=== PATIENT | male | born 1960 | race Caucasian/White ===

== ENCOUNTER 2024-03-18 18:29 | Inpatient (IN) | payer MEDICARE, OTHER, SELFPAY ==
[2024-03-18 10:36] VITALS: BP 117/80
--- NOTE | 2024-03-18 12:39 | ED.GENMED ---
History of Present Illness
General
Chief Complaint: Flank Pain
Source: patient
Exam Limitations: none
Time Seen by Provider: 03/18/24 12:10
Nursing documentation reviewed up to this point in time: agreed with
History of Present Illness
History of Present Illness:
Patient is a 64 year old male with hx DM presenting for evaluation of right flank pain. Patient states that a few days ago he was noticing urinary frequency and hematuria. He then began with right lower abdominal/flank pain that has been
intermittent since. Patient has felt 'chilly 'intermittently over the past few days with mild nausea. He did take some ibuprofen with minimal relief. Patient denies any associated known fevers, chest pain, shortness of breath, and oxygen.
Patient has had bouts of vomiting. Patient does report that he is still noticing urinary frequency although denies any dysuria or repeat episodes of hematuria.
Patient has a history of kidney stones in the past which she does state feels very similar to this.
Review of Systems
Review of Systems
Allergies reviewed?: Yes
All Other Systems: ROS reviewed and negative except as documented in HPI and ROS
Phy Exam
Physical Exam
Physical Exam:
Vitals: Patient's vital signs are stable. Afebrile
General: Patient is well appearing, no acute distress. Nontoxic appearing
Skin: Warm and dry, no rashes or lesions
Head: Normocephalic, atraumatic
Eyes: Sclera nonicteric. EOMs intact. No nystagmus.
Throat: Protecting airway
Neck: Normal ROM, no cervical spine tenderness, no meningismus
Cardiac: Regular rate and rhythm, no murmurs.
Pulm: Normal respiratory effort, no wheezes, rales, rhonchi heard on exam.
Abdomen: Abdomen soft. No abdominal tenderness. No tenderness at McBurnerys point. Mild right CVA tenderness. No rashes or ecchymosis overlying right flank. Well healed horizontal scar just superior to umbilicus from prostate surgery a few years
ago.
Extremities: No evidence of cyanosis or edema. Great distal pulses.
Neuro: AAOx3. CN II-XII intact. No focal neurologic deficits.
Psychiatric: Normal affect.
Course
Orders/Labs/Results
Orders:
Orders
03/18/24 12:40
Complete Blood Count/With Diff Urgent
Comprehensive Metabolic Panel Urgent
Urinalysis Reflex To Culture Urgent
Date Specimen was Collected: 03/18/24
Time Specimen was Collected: 12:14
03/18/24 12:57
0.9% Sodium Chloride 1000 ml [Nss] 1,000 ml IV BOLUS
Ketorolac [Toradol] 15 mg IV NOW STA
Ondansetron Injectable [Zofran] 4 mg IV NOW STA
03/18/24 13:00
CT Abd/pel Without Iv Or Oral Urgent
Comment: history stones
Reason For Exam: R flank pain, hematuria
03/18/24 14:24
Tamsulosin [Flomax] 0.4 mg PO NOW STA
03/18/24 17:34
Admit/Transfer Patient As Directed
Co-Sign Provider:
Level of Care: Inpatient admission
Assign to:: Medical/Surgical
Physician / Group: Inessa Mae - [facility]abists
Diagnosis: JENIFER, obstructive uropathy/stones
Reason for Hospitalization: JENIFER, obstructive uropathy/stones - IVF and pain control
Expected length of stay greater than two midnights?: Yes
ELOS- Estimated Length of Stay in days: 2
I certify the patient meets the requirements for IP care: Yes
Code Status As Directed
Resuscitation Status: Full Code
Abnormal Lab Results
03/18/24
12:40
MPV 11.3 H fL
(7.4-10.4)
Absolute Neuts (auto) 6.6 H 10^3/uL
(1.4-6.5)
Absolute Monos (auto) 0.8 H 10^3/uL
(0.1-0.6)
BUN 31 H mg/dl
(9-20)
Creatinine 1.9 H mg/dL
(0.7-1.3)
Glucose 151 H mg/dl
(70-99)
Urine Glucose 3+ A
(Negative)
03/18/24 12:40
03/18/24 12:40
Vital Signs
Initial and Last Documented VS:
Initial Vital Signs
Temp Pulse Resp BP Pulse Ox
97.9 F 93 18 117/80 97
03/18/24 10:36 03/18/24 10:36 03/18/24 10:36 03/18/24 10:36 03/18/24 10:36
Last Documented Vital Signs
Temp Pulse Resp BP Pulse Ox
97.9 F 73 17 127/86 98
03/18/24 10:36 03/18/24 13:32 03/18/24 13:32 03/18/24 13:32 03/18/24 13:32
MDM/Problems Addressed
Differential Diagnosis Includes:
Not limited to: kidney stone, UTI, pyelonephritis, appendicitis, muscle strain, zoster
MDM/Problems Addressed:
64-year-old male with history of kidney stones presenting with acute onset right flank pain few days ago. Patient reports intermittent episodes of right flank pain associated dysuria, and intermittent nausea. 1 episode of hematuria a few days ago.
Patient denies any fever. No chest pain or shortness of breath. Vital signs are stable, patient is afebrile. Physical exam as above. Patient is well-appearing, nontoxic-appearing. Heart regular rate and rhythm, lungs clear bilaterally.
Abdomen is soft and nontender in all 4 quadrants. No CVA tenderness bilaterally. No evidence of rash or bruising on bilateral flanks or abdomen. Labs were performed with show no evidence of leukocytosis. Creatinine was elevated 1.9. No
comparison value although patient was able to locate his blood work performed about a month ago there was endocrinology which showed a creatinine of 1.0. Urine shows no hematuria or signs of infection. Patient was given fluids, Toradol, Zofran.
CT pending.
CT scan does show evidence of 2 to 3 mm stones in the distal right ureter near the UVJ with an associated 3 mm stone just proximally on right side. Did discuss findings with patient. Patient's pain is well-controlled, although given ureteral
calculi in setting of JENIFER recommended admission to hospital for IV fluid, trending kidney function. Patient would like to be admitted to hospital for further evaluation. Patient will be given a dose of Flomax. Case discussed with urology who will
consult. Patient admitted to hospitalist service.
Chronic conditions affecting care:
N/A
Acute Exacerbation and/or Progression of Chronic Illness:
N/A
*Radiology
Radiology exam reviewed: preliminary read by ED provider and radiology read reviewed
*Pulse Oximetry
Patient hypoxic: no
*EKG
Interpreted by ED Provider?: NA
*Keller Machine Operator Interpretation
Rate: Keller Machine Operator- N/A
*Critical Care Note
Total Time (30-74mins, 75-104mins- exclusive of procedures): Not Applicable
Patient Management
Discussion with other providers: Hospitalist and [facility] (urology- Dr. boss)
Escalation/DeEscalation of care consider admission/obs:
Admit for ureteral calculi in setting of JENIFER and further management
ED Attending Note
-
Portions of this chart may have been created with voice recognition software.� Occasional wrong word or��sound alike� substitutions may have occurred due to the inherent limitations of voice recognition software.
Discharge Plan
Departure
Patient Disposition: Admit
Date of Disposition: 03/18/24
Time of Disposition: 14:17
Presentation/result/management discussed w/ accepting MD/DO: Hospitalist
Discharge Problem:
Right distal ureteral calculus, JENIFER (acute kidney injury)
Interventions
Interventions:
*Risk Screen - Suicide Last Done: 03/18/24 10:38
*General Assessment Last Done: 03/18/24 10:38
*Neglect/Abuse Screening Last Done: 03/18/24 10:38
AY-Khwucn-Nvszncaeda Assessment Last Done: 03/18/24 13:32
ED-Male Genitourinary Assessment Last Done: 03/18/24 13:32
[2024-03-18 12:50] LABS: % Basophils 0.5 % (0-2); % Eosinophils 1.8 % (0-6); % Immature Granulocytes 0.2 % (0-0.5); % Lymphocytes 23.2 % (20.5-51.1); % Monocytes 7.7 % (1.7-9.3); % Neutrophils 66.6 % (42.2-75.2); Absolute Basophils 0.1 10^3/uL (0-0.2); Absolute Eosinophils 0.2 10^3/uL (0-0.7); Absolute Lymphocytes 2.3 10^3/uL (1.2-3.4); Absolute Monocytes 0.8 10^3/uL (0.1-0.6); Absolute Neutrophils 6.6 10^3/uL (1.4-6.5); Hematocrit 41.5 % (39.0-52.0); Hemoglobin 14.2 g/dL (13.0-18.0); Mean Corp Hgb Conc. 34.2 g/dL (33.0-37.0); Mean Corpuscular Hgb 29.3 pg (27.0-31.0); Mean Corpuscular Volume 85.6 fL (80.0-94.0); Mean Platelet Volume 11.3 fL (7.4-10.4); Nucleated Red Blood Cells % 0 % (-); Platelet Count 240 10^3/uL (130-400); Red Blood Cell Count 4.85 10^6/uL (4.70-6.10); Red Cell Dist. Width 13.8 % (11.5-14.5); White Blood Cell Count 9.9 10^3/uL (4.8-10.8)
[2024-03-18 12:55] LABS: Urine Albumin Negative (Neg - Trace); Urine Bilirubin Negative (Negative); Urine Character Clear (Clear); Urine Color Yellow; Urine Glucose 3+ (Negative); Urine Ketone Negative (Negative); Urine Leukocyte Negative (Negative); Urine Nitrite Negative (Negative); Urine Occult Blood Negative (Negative); Urine Specific Gravity 1.015 (<1.030); Urine Urobilinogen Negative (Neg - 1+)
[2024-03-18 13:03] LABS: ALT (SGPT) 17 U/L (0-50); AST (SGOT) 22 U/L (17-59); Albumin 4.5 g/dl (3.5-5.0); Alkaline Phosphatase 84 U/L (38-126); Blood Urea Nitrogen 31 mg/dl (9-20); Calcium 9.7 mg/dl (8.4-10.2); Carbon Dioxide 22 mmol/L (22-30); Chloride 105 mmol/L (98-107); Glucose 151 mg/dl (70-99); Potassium 3.8 mmol/L (3.5-5.1); Sodium 138 mmol/L (135-145); Total Bilirubin 0.8 mg/dl (0.2-1.3); eGFR 38.42
[2024-03-18] MEDS: ZOFRAN 4 MG IV (13:29)
[2024-03-18] MEDS: TORADOL 15 MG IV (13:29)
[2024-03-18] MEDS: NSS 1000 IV ×2 (13:29→20:25)
[2024-03-18 13:32] VITALS: BP 127/86
[2024-03-18] MEDS: FLOMAX 0.400000000000000022 MG PO (14:48)
--- NOTE | 2024-03-18 14:58 | PHANOTE ---
03/18/2024, [employer] rec tech, spoke to pt. to obtain their med. history; pt. gets their Ozempic through a low income program directly from the power tool repairer and their Jardiance through [employer]. Could not confirm with another source.
--- NOTE | 2024-03-18 17:22 | HPS.HSE ---
Family Physician
-
Family Physician: Tony Hay
Chief Complaint
-
flank pain
History of Present Illness
64 y/o M hx of DM, prior kidney stones, presenting to ER with R flank pain. He states symptoms began a few days ago with urinary frequency along with hematuria. Pain began RL abdomen then into R flank. Intermittent in nature. He reports some chills
and some nausea, some vomiting. Motrin provided little relief. No fevers or any other complaints. At this juncture still having urinary frequency but no hematuria.
Reports he has seen [facility] previously with prior stones that passed spontaneously. No prior urological procedure for stones.
Medical History
Past Medical History
Past Medical History: Reports Other (hx of DM, prior kidney stones)
Past Surgical History: Reports Other (hx of prostate surgery)
Social History
Tobacco: Non-smoker
Alcohol: None
Drug: None
Personal:
Family History
Family History: Not pertinent
Allergies / Home Medications
Allergies reflects when Allergies were last updated in [email or web address].
Home Medications with original date entered in [email or web address]
Allergy/Medication List:
Allergies
Allergy/AdvReac Type Severity Reaction Status Date / Time
No Known Allergies Allergy Unverified 08/23/09 22:38
Home Medications
Excedrin 2 tab PO BIDPRN PRN mild pain 03/18/24
Ozempic 0.5 mg SC TU 03/18/24
aspirin 81 mg tablet,delayed release 81 mg PO DAILY 03/18/24
atorvastatin 40 mg tablet 40 mg PO HS 03/18/24
cholecalciferol (vitamin D3) 125 mcg (5,000 unit) tablet 125 mcg PO DAILY 03/18/24
empagliflozin 10 mg tablet (Jardiance) 10 mg PO DAILY 03/18/24
glipizide 5 mg tablet 5 mg PO BID 03/18/24
lisinopril 2.5 mg tablet 2.5 mg PO DAILY 03/18/24
metformin 500 mg tablet,extended release 24hr (osmotic) 2,000 mg PO DAILY 03/18/24
pioglitazone 30 mg tablet 30 mg PO DAILY 03/18/24
Review of Systems
-
A 12 point ROS was completed and negative except as noted: Yes
Physical Exam
Vital Signs
Vital Signs
Temp Pulse Resp BP Pulse Ox
97.9 F 73 17 127/86 98
03/18/24 10:36 03/18/24 13:32 03/18/24 13:32 03/18/24 13:32 03/18/24 13:32
Physical Exam
General: No Apparent Distress
HEENT: NormoCephalic and Anicteric
Respiratory: No Wheezes
Cardiac: S1/S2 and Regular Rhythm
GI: Non Distended
Neuro: AO x 3
Hematologic/Lymphatic: No Lymphadenopathy
Psych: Calm
Laboratory Results
-
03/18/24 12:40
03/18/24 12:40
Laboratory Results
Total Bilirubin 0.8 mg/dl (0.2-1.3) 03/18/24 12:40
AST 22 U/L (17-59) 03/18/24 12:40
ALT 17 U/L (0-50) 03/18/24 12:40
Alkaline Phosphatase 84 U/L (38-126) 03/18/24 12:40
Data Reviewed
-
Lab Data: Labs Reviewed by me
Impression/Plan
-
Assessment:
Ureterolithiasis
Hx of prior kidney stones
- CT: 2 - 3 mm calculus at the right ureterovesical junction and possible additional 3 mm calculus just slightly more proximally positioned within the distal right ureter with mild right ureteral dilatation.
- pain control, Flomax, IVF
- monitor for fevers, if spikes, start empiric Rocephin
- keep NPO until Urology can evaluate
Obstructive JENIFER
- continue IVF
hx of BPH with prior prostate surgery
- continue Flomax
essential HTN
- hold ARLENE
Type 2 DM
- hold oral agents
- SSI
- check A1c
DVT ppx: SCDs
Code: Full
--- NOTE | 2024-03-18 19:25 | PTCARENOTE ---
Patient arrived to 318-2 from ED via stretcher, ambulated into room independently without difficulty. Patient is alert and oriented, currently c/o soreness/slight pain to right flank but tolerable. Patient requesting food as he states he did not
have anything to eat all day. Patient also inquiring about car upon arrival, as patient drove himself to the hospital and is parked in the front lot of the hospital. Provided patient with urinal and will strain all urine per MD orders - patient
aware and with understanding. C/o slight constipation at this time -- will be willing to take something to assist. LBM 7 per patient. Initiated on IVFs NSS at 80ml/hour per MD orders through Left AC line -- tolerating well. Skin intact. Call elliott
within reach -- will monitor.
--- NOTE | 2024-03-18 20:06 | CONS.URO ---
Consultation
-
Performing Provider: Peffer
Reason for Consultation: Ureteral stones
Medical History
History of Present Illness
64M with prior history of small kidney stones in 2008 and 2017
Previously passed both stones spontaneously without needing procedures
Presenting to ER with R flank pain. He states symptoms began a few days ago with urinary frequency along with hematuria. Pain began in R abdomen then into R flank. Intermittent in nature. He reports some chills and some nausea, some vomiting. No
fevers or any other complaints. Hematuria since resolved
Nontoxic in ER without signs of sepsis and urinalysis benign
CT scan showed 3mm R distal ureteral stone, with an additional 3mm stone in the distal ureter or recently passed to bladder
Currently he is comfortable and pain controlled
Found to have JENIFER with creatinine 1.9 over baseline 1.14
Past Medical History
Past Medical History: Other (DM, kidney stones)
Social History
Tobacco: Non-smoker
Alcohol: None
Drug: None
Personal:
Family History
Family History: Reviewed & Not Pertinent
Allergies/Home Medications
Allergies
Allergy/AdvReac Type Severity Reaction Status Date / Time
No Known Allergies Allergy Unverified 08/23/09 22:38
Home Medications
�Medication �Instructions �Recorded �Confirmed �Type
Excedrin 2 tab PO BIDPRN PRN mild pain 03/18/24 03/18/24 History
Ozempic 0.5 mg SC TU 03/18/24 03/18/24 History
aspirin 81 mg tablet,delayed 81 mg PO DAILY 03/18/24 03/18/24 History
release
atorvastatin 40 mg tablet 40 mg PO HS 03/18/24 03/18/24 History
cholecalciferol (vitamin D3) 125 125 mcg PO DAILY 03/18/24 03/18/24 History
mcg (5,000 unit) tablet
empagliflozin 10 mg tablet 10 mg PO DAILY 03/18/24 History
(Jardiance)
glipizide 5 mg tablet 5 mg PO BID 03/18/24 03/18/24 History
lisinopril 2.5 mg tablet 2.5 mg PO DAILY 03/18/24 03/18/24 History
metformin 500 mg tablet,extended 2,000 mg PO DAILY 03/18/24 03/18/24 History
release 24hr (osmotic)
pioglitazone 30 mg tablet 30 mg PO DAILY 03/18/24 03/18/24 History
Physical Exam
Vital Signs
Vital Signs
Temp Pulse Resp BP Pulse Ox
97.9 F 73 17 127/86 98
03/18/24 10:36 03/18/24 13:32 03/18/24 13:32 03/18/24 13:32 03/18/24 13:32
Lab / Testing Results
Laboratory Results
03/18/24 12:40
03/18/24 12:40
Physical Exam
General: Well Developed, Well Nourished and No Apparent Distress
GI: Soft and Non Tender
Genito-urinary: No Costovertebral Tend
Neuro: AO x 3
Psych: Calm and Intact Judgement
Assessment / Plan
-
64M with R flank pain and JENIFER related to small R distal ureteral stones
- Discussed management options including trial of passage and surgical intervention. Given he passed stones multiple times before, he would prefer a trial of passage and wants to avoid having a stent
- Continue tamsulosin 0.4mg daily
- IV/PO hydration
- Trend creatinine
- Strain all urine for stones
- UA negative for UTI
Plan for ureteroscopy on 03/20 if stones don't pass by that time
Data Reviewed
-
CT Scan: Image personally visualized and interpreted
Lab Data: Labs Reviewed
[2024-03-18] MEDS: LIPITOR 40 MG PO (20:25)
[2024-03-18 21:25] LABS: Glucose - Point of Care 112 mg/dl (70-99)
[2024-03-18 22:18] VITALS: BMI 27.0
[2024-03-18 22:19] VITALS: BP 125/86
[2024-03-18] MEDS: TORADOL 10 MG IV (23:56)
[2024-03-19 06:27] LABS: Hematocrit 38.5 % (39.0-52.0); Hemoglobin 12.5 g/dL (13.0-18.0); Mean Corp Hgb Conc. 32.5 g/dL (33.0-37.0); Mean Corpuscular Hgb 28.3 pg (27.0-31.0); Mean Corpuscular Volume 87.1 fL (80.0-94.0); Platelet Count 175 10^3/uL (130-400); Red Blood Cell Count 4.42 10^6/uL (4.70-6.10); Red Cell Dist. Width 13.7 % (11.5-14.5); White Blood Cell Count 7.3 10^3/uL (4.8-10.8)
[2024-03-19 06:53] LABS: Blood Urea Nitrogen 27 mg/dl (9-20); Calcium 8.8 mg/dl (8.4-10.2); Carbon Dioxide 19 mmol/L (22-30); Chloride 111 mmol/L (98-107); Estimated Creatinine Clearance 39 ml/min; Glucose 87 mg/dl (70-99); Potassium 3.8 mmol/L (3.5-5.1); Sodium 138 mmol/L (135-145)
[2024-03-19 07:00] VITALS: BP 123/73
--- NOTE | 2024-03-19 07:36 | W.PN.URO.CBU ---
Today's Communication / Plan
-
continue medical TOP for stone
Assessment / Plan
-
stone
continued TOP
plan for OR tomorrow if stones not passed
Diagnosis
-
Date of Service: March 19, 2024
-
Patient Diagnosis:
stone
Subjective
-
pt still with intermittent pain
no stone seen in strainer
cr stable at 1.8
no fevers
Objective
-
Vital Signs
Temp Pulse Resp BP Pulse Ox
98.6 F 91 18 125/86 97
03/18/24 22:19 03/18/24 22:19 03/18/24 22:19 03/18/24 22:19 03/18/24 22:19
Intake and Output
03/18/24 03/19/24 03/20/24
06:59 06:59 06:59
Output Total 500 / 500
Balance -500 / -500
Output:
Urine, Voided 500 / 500
Other:
Number of approximated SMALL 1
amounts of urine
Laboratory Results
03/19/24 06:06
03/19/24 06:06
Physical Exam
-
General - no acute distress
[2024-03-19 08:17] LABS: Glucose - Point of Care 110 mg/dl (70-99)
[2024-03-19 09:26] LABS: Glycohemoglobin (HgbA1c) 6.9 % (4.0-5.6)
[2024-03-19] MEDS: FLOMAX 0.400000000000000022 MG PO (09:45)
[2024-03-19] MEDS: NSS 1000 IV ×2 (09:46→21:16)
--- NOTE | 2024-03-19 11:12 | W.PN.HOSP.TC ---
Today's Communication/Plan
-
continue conservative trial of stone passage but keep NPO p MN in case of Urological intervention tomorrow
If any signs of sepsis develop, will start empiric Abx.
Assessment / Plan
Assessment / Plan
Assessment:
Ureterolithiasis
Hx of prior kidney stones
- CT: 2 - 3 mm calculus at the right ureterovesical junction and possible additional 3 mm calculus just slightly more proximally positioned within the distal right ureter with mild right ureteral dilatation.
- pain control, Flomax, IVF
- monitor for fevers, if spikes, start empiric Rocephin
- NPO p MN for tentative stone removal in OR tomorrow if does not pass today spontaneously; d/w Urology
Obstructive JENIFER
- cr 1.9 to 1.8 today
- continue IVF
hx of BPH with prior prostate surgery
- continue Flomax
essential HTN
- hold ARLENE
Type 2 DM
- hold oral agents
- SSI
- A1c 6.9%
DVT ppx: SCDs
Code: Full
Anticipated Discharge: 24 - 48 hours
Subjective/Interval History
-
Date of Service: March 19, 2024
no stone passage yet, pain controlled
Objective Data
-
Labs:
Laboratory Results
03/19/24
06:06
WBC 7.3
Hgb 12.5 L
Hct 38.5 L
Plt Count 175 D
Sodium 138
Potassium 3.8
Chloride 111 H
Carbon Dioxide 19 L
BUN 27 H
Creatinine 1.8 H
Glucose 87
Calcium 8.8
Vital Signs:
Vital Signs
Temp Pulse Resp BP Pulse Ox
98.2 F 87 16 123/73 97
03/19/24 07:00 03/19/24 07:00 03/19/24 07:00 03/19/24 07:00 03/19/24 07:00
I&O
03/18/24 03/19/24 03/20/24
06:59 06:59 06:59
Output Total 500 / 500
Balance -500 / -500
Physical Exam
-
General: No Apparent Distress
HEENT: Normocephalic and Atraumatic
Respiratory: Negative Wheezes
Cardiac: Regular Rhythm and S1/S2
GI: Soft
Musculoskeletal: No Edema
Neuro: AO x 3
Hematologic / Lymphatic: No Lymphadenopathy
Psych: Calm
Data Reviewed
-
Total Time Spent with Patient (in minutes): 42
Labs: Labs Reviewed by me
[2024-03-19 12:16] LABS: Glucose - Point of Care 134 mg/dl (70-99)
[2024-03-19] MEDS: TORADOL 10 MG IV (13:14)
[2024-03-19 16:11] VITALS: BP 117/76
[2024-03-19 17:08] LABS: Glucose - Point of Care 229 mg/dl (70-99)
--- NOTE | 2024-03-19 18:06 | PTCARENOTE ---
Pt refused 2 units of insulin for Accucheck of 229. Pt stated ' that number is normal for me, no no no I'm not taking Insulin'.
[2024-03-19] MEDS: LIPITOR 40 MG PO (21:16)
[2024-03-19] MEDS: SENOKOT-S 1 TABLET PO (21:16)
[2024-03-19] MEDS: NSS IV (21:16)
[2024-03-19 21:26] LABS: Glucose - Point of Care 150 mg/dl (70-99)
[2024-03-19 23:41] VITALS: BP 132/76
[2024-03-20 06:33] LABS: Glucose - Point of Care 105 mg/dl (70-99)
[2024-03-20 06:52] LABS: Hematocrit 36.3 % (39.0-52.0); Hemoglobin 11.9 g/dL (13.0-18.0); Mean Corp Hgb Conc. 32.8 g/dL (33.0-37.0); Mean Corpuscular Hgb 28.7 pg (27.0-31.0); Mean Corpuscular Volume 87.5 fL (80.0-94.0); Platelet Count 177 10^3/uL (130-400); Red Blood Cell Count 4.15 10^6/uL (4.70-6.10); Red Cell Dist. Width 13.5 % (11.5-14.5)
[2024-03-20 07:16] LABS: Blood Urea Nitrogen 23 mg/dl (9-20); Calcium 9.4 mg/dl (8.4-10.2); Carbon Dioxide 20 mmol/L (22-30); Chloride 112 mmol/L (98-107); Estimated Creatinine Clearance 64 ml/min; Glucose 106 mg/dl (70-99); Potassium 3.9 mmol/L (3.5-5.1); Sodium 138 mmol/L (135-145); eGFR > 60.00
--- NOTE | 2024-03-20 07:42 | W.PN.URO.CBU ---
Today's Communication / Plan
-
cleared urologically for discharge
Assessment / Plan
-
stone
pt has passed the two stones sen on ct
renal function returned to wnl
send stone for analysis
cleared urologically for discharge
Diagnosis
-
Date of Service: March 20, 2024
-
Patient Diagnosis:
stone
Subjective
-
pt passed 2 stones yesterday pm
no pain since
cr back down to normal
Objective
-
Vital Signs
Temp Pulse Resp BP Pulse Ox
98.1 F 76 18 132/76 95
03/19/24 23:41 03/19/24 23:41 03/19/24 23:41 03/19/24 23:41 03/19/24 23:41
Intake and Output
03/19/24 03/20/24 03/21/24
06:59 06:59 06:59
Intake Total 2920 / 2920
Output Total 2650 / 2650
Balance 270 / 270
Intake:
Oral fluids 1000 / 1000
IV fluids (Total) 1920 / 1920
Output:
Urine, Voided 2650 / 2650
Other:
Number of approximated SMALL 1
amounts of urine
Laboratory Results
03/20/24 06:16
03/20/24 06:16
Physical Exam
-
General - no acute distress
[2024-03-20 07:49] VITALS: BP 132/78
[2024-03-20] MEDS: FLOMAX 0.400000000000000022 MG PO (08:27)
[2024-03-20 09:01] LABS: Glucose - Point of Care 110 mg/dl (70-99)
--- NOTE | 2024-03-20 10:47 | W.PN.HOSP.TC ---
Today's Communication/Plan
-
dc to home
Assessment / Plan
Assessment / Plan
Assessment:
Ureterolithiasis
Hx of prior kidney stones
- CT: 2 - 3 mm calculus at the right ureterovesical junction and possible additional 3 mm calculus just slightly more proximally positioned within the distal right ureter with mild right ureteral dilatation.
- pain control, Flomax, IVF
- monitor for fevers, if spikes, start empiric Rocephin
- Pt passed 2 stones, sent for analysis
offered short course of abx on dc, pt defers
Obstructive JENIFER
- cr 1.9-->1.8-->1.1
hx of BPH with prior prostate surgery
- continue Flomax
essential HTN
- hold ARLENE
Type 2 DM
- resume oral agents on dc
- SSI
- A1c 6.9%
DVT ppx: SCDs
Code: Full
Anticipated Discharge: Today
Subjective/Interval History
-
Date of Service: March 20, 2024
Pain resolved, has been cleared by Urology for dc
Objective Data
-
Labs:
Laboratory Results
03/20/24
06:16
WBC 6.0
Hgb 11.9 L
Hct 36.3 L
Plt Count 177
Sodium 138
Potassium 3.9
Chloride 112 H
Carbon Dioxide 20 L
BUN 23 H
Creatinine 1.1
Glucose 106 H
Calcium 9.4
Vital Signs:
Vital Signs
Temp Pulse Resp BP Pulse Ox
97.9 F 74 18 132/78 97
03/20/24 07:49 03/20/24 07:49 03/20/24 07:49 03/20/24 07:49 03/20/24 07:49
I&O
03/19/24 03/20/24 03/21/24
06:59 06:59 06:59
Intake Total 2920 / 2920
Output Total 2650 / 2650
Balance 270 / 270
Review of Systems
-
History Source: Patient and Coordinated Provider
Constitutional: Denies Fever
EENT: Reports No Symptoms Reported
Respiratory: Reports No Symptoms; Denies Cough
Cardiac: Reports No Symptoms
Abdomen/GI: Reports No Symptoms
Genitourinary: Reports No Symptoms; Denies Dysuria
Physical Exam
-
General: Well Developed, Well Nourished and No Apparent Distress
HEENT: Atraumatic and Moist Mucous Membranes
Respiratory: Clear to Auscultation; Negative Wheezes, Rales or Rhonchi
Cardiac: Regular Rhythm and S1/S2
GI: Soft, Nontender and Nondistended
Genito-urinary: No Costovertebral Tender
Musculoskeletal: No Clubbing, No Cyanosis and No Edema
Neuro: Awake, Alert and Oriented
--- NOTE | 2024-03-20 11:00 | W.DS.TRANS ---
DC Summary - Light Bulb Tester
-
Discharge Instructions:
Discharge Diagnosis/Procedures kidney stone
Diet No restrictions
Additional Diets drink 2 liters of water per day
Activity No restrictions
Driving Restrictions As prior to admission
Bathing Restrictions None
Blood Work CBC, BMP, UA in 1-2 weeks
Instructions:
Stand-Alone Forms:
Changes to Home Medications: No
Discharge Medications:
DC Medications w/original date entered in [facility]
Excedrin 2 tab PO BIDPRN PRN mild pain 03/18/24
Ozempic 0.5 mg SC TU Diabetes 03/18/24
aspirin 81 mg tablet,delayed release 81 mg PO DAILY Blood Clot Prevention/Tx 03/18/24
atorvastatin 40 mg tablet 40 mg PO HS High Cholesterol 03/18/24
cholecalciferol (vitamin D3) 125 mcg (5,000 unit) tablet 125 mcg PO DAILY Supplement 03/18/24
empagliflozin 10 mg tablet (Jardiance) 10 mg PO DAILY Diabetes 03/18/24
glipizide 5 mg tablet 5 mg PO BID Diabetes 03/18/24
lisinopril 2.5 mg tablet 2.5 mg PO DAILY Blood Pressure 03/18/24
metformin 500 mg tablet,extended release 24hr (osmotic) 2,000 mg PO DAILY Diabetes 03/18/24
pioglitazone 30 mg tablet 30 mg PO DAILY Diabetes 03/18/24
Home Medication Changes
Pending Results: Yes
Additional Pending Results:
renal colic stone analysis
[2024-03-20 11:15] VITALS: BP 126/72
[2024-03-23 16:19] LABS: Stone Analysis Mass 24 mg
== END 2024-03-20 11:33 | disposition home or self-care (01) | DRG 683 ==
LOC: 3 WEST ACU 18:29
PROVIDERS: Emergency Medicine; Specialist; ADMITTING PHYSICIAN Internal Medicine; ATTENDING PHYSICIAN Internal Medicine; CONSULT PHYSICIAN Urology; EMERGENCY PHYSICIAN Emergency Medicine; FAMILY PHYSICIAN Family Medicine
DX: N17.8 Other acute kidney failure (principal); N20.1 Calculus of ureter; I10 Essential (primary) hypertension; E11.9 Type 2 diabetes mellitus without complications; E78.5 Hyperlipidemia, unspecified; Z79.84 Long term (current) use of oral hypoglycemic drugs; Z79.85 Long-term (current) use of injectable non-insulin antidiabetic drugs; Z79.82 Long term (current) use of aspirin; Z87.438 Personal history of other diseases of male genital organs
CPT/HCPCS: 74176; 80048; 80053; 81003; 82365; 82962; 83036; 85025; 85027; 96361; 96374; 96375; 99285